=== PATIENT | female | born 1980 ===

== ENCOUNTER 2017-12-13 17:43 | Emergency (ER) | payer OTHER ==
[2017-12-13] MEDS ORDERED: Sodium Chloride 0.9% 1,000 ML IV ONE (20:13)
[2017-12-13] MEDS ORDERED: Apap-Butalbital-Caffeine 325-50-40mg Tab PO STA (20:14)
[2017-12-13 20:29] LABS: BASO # 0.1 K/uL (0.0-0.2); BASO % 1.1 % (0.0-2.0); EOS # 0.1 K/uL (0.0-0.7); EOS % 1.1 % (0.0-4.0); HEMOGLOBIN 12.8 g/dL (11.0-16.0); LYMPH # 2.6 K/uL (1.0-4.3); LYMPH % 25.7 % (20.0-40.0); MEAN CELL VOLUME 82.5 fL (81.0-99.0); MEAN CORPUSCULAR HGB CONC 33.9 g/dL (33.0-37.0); MEAN PLATELET VOLUME 6.8 fL (7.2-11.7); MONO # 0.8 K/uL (0.0-0.8); MONO % 7.4 % (0.0-10.0); NEUT # 6.6 K/uL (1.8-7.0); NEUT % 64.7 % (50.0-75.0); RBC 4.56 Mil/uL (3.80-5.20); WHITE BLOOD COUNT 10.2 K/uL (4.8-10.8)
[2017-12-13] MEDS ORDERED: Apap-Butalbital-Caffeine 325-50-40mg Tab ONE (20:30)
[2017-12-13 20:35] LABS: HCG,QUALITATIVE URINE NEGATIVE (NEGATIVE)
[2017-12-13 20:36] LABS: SQUAMOUS EPITHIAL 5 /hpf (0-5); URINE BACTERIA OCC (<OCC); URINE BILIRUBIN NEGATIVE (NEGATIVE); URINE BLOOD NEGATIVE (NEGATIVE); URINE CLARITY Clear (Clear); URINE COLOR Colorless (YELLOW); URINE GLUCOSE (UA) NORMAL (Normal); URINE LEUKOCYTE ESTERASE NEG Leu/uL (Negative); URINE NITRATE NEGATIVE (NEGATIVE); URINE PROTEIN NEGATIVE (NEGATIVE); URINE UROBILINOGEN NORMAL mg/dL (0.2-1.0)
[2017-12-13 20:41] LABS: CALCIUM 9.1 mg/dl (8.6-10.4); GFR AFRICAN-AMERICAN > 60; GFR NON-AFRICAN AMERICAN > 60
[2017-12-13 21:08] LABS: ALB/GLOB RATIO 1.1 (1.0-2.1); ALBUMIN 4.1 g/dL (3.5-5.0); ALT/SGPT 28 U/L (9-52); AST/SGOT 38 U/L (14-36); BLOOD UREA NITROGEN 8 mg/dL (7-17); MAGNESIUM 1.9 mg/dL (1.6-2.3)
--- NOTE | 2017-12-13 21:26 | CT ---
EXAM: CT Head Without Intravenous Contrast CLINICAL HISTORY: 37 years old, female; Signs and symptoms; Dizziness; Additional info: Headache, dizziness, h/o seizure disorder TECHNIQUE: Axial computed tomography images of the head/brain without intravenous contrast. All CT scans at this facility use one or more dose reduction techniques, viz.: automated exposure control; ma/kV adjustment per patient size (including targeted exams where dose is matched to indication; i.e. head); or iterative reconstruction technique. COMPARISON: No relevant prior studies available. FINDINGS: Brain: No intracranial hemorrhage. No mass. No definite edema. Ventricles: No hydrocephalus. Bones/joints: No acute fracture. Soft tissues: Unremarkable. Sinuses: Tiny LEFT sphenoid retention cyst. Mastoid air cells: No mastoid effusion. Orbits: Unremarkable as visualized. IMPRESSION: 1. No definite acute intracranial abnormality. 2. Incidental/non-acute findings are described above.
--- NOTE | 2017-12-13 22:50 | C.PDOC ---
Time Seen by Provider: 12/13/17 20:01 Chief Complaint (Nursing): Headache History Per: Patient Onset/Duration Of Symptoms: Days (4), Waxing/Waning, Gradual Current Symptoms Are (Timing): Still Present Severity: Moderate Quality: Pressure Associated Symptoms: Other (Lightheadedness). denies: Photophobia, Blurred Vision, Vomiting, Extremity Weakness Additional History Per: Prior Records Past Medical History Reviewed: Historical Data, Nursing Documentation, Vital Signs Vital Signs: Last Vital Signs Temp 97.8 F 12/13/17 17:55 Pulse 60 12/13/17 20:32 Resp 16 12/13/17 20:32 BP 118/78 12/13/17 20:32 Pulse Ox 100 12/13/17 22:50 - Medical History PMH: Anxiety, Depression, HTN, Seizures Surgical History: Appendectomy, Cholecystectomy - [facility] Procedures INJECT/INFUSE NEC (08/30/14) Family History: States: Unknown Family Hx - Social History Hx Tobacco Use: No Hx Alcohol Use: Yes Hx Substance Use: No - Immunization History Hx Tetanus Toxoid Vaccination: No Hx Influenza Vaccination: No Hx Pneumococcal Vaccination: No Review Of Systems Except As Marked, All Systems Reviewed And Found Negative. Constitutional: Positive for: Malaise. Negative for: Fever Eyes: Negative for: Pain, Vision Change Cardiovascular: Negative for: Chest Pain Respiratory: Negative for: Cough, Shortness of Breath Gastrointestinal: Negative for: Vomiting, Abdominal Pain, Diarrhea Musculoskeletal: Negative for: Neck Pain, Back Pain Skin: Negative for: Rash Neurological: Positive for: Headache. Negative for: Weakness, Numbness, Incoordination, Change in Speech, Confusion, Seizures, Altered Mental Status Psych: Positive for: Anxiety. Negative for: Suicidal ideation Physical Exam - Physical Exam Appears: Non-toxic, No Acute Distress Skin: Normal Color, Warm, Dry, No Rash Head: Atraumatic, Normacephalic Eye(s): bilateral: Normal Inspection, PERRL, EOMI Oral Mucosa: Moist Neck: Normal ROM, Supple Cardiovascular: Rhythm Regular Respiratory: Normal Breath Sounds, No Accessory Muscle Use Gastrointestinal/Abdominal: Soft, No Tenderness Back: No CVA Tenderness Extremity: Normal ROM Neurological/Psych: Oriented x3, Normal Speech, Normal Cognition, No Cerebellar Signs, Normal Motor, Normal Sensation ED Course And Treatment - Laboratory Results Result Diagrams: 12/13/17 20:26 12/13/17 20:26 Lab Interpretation: No Acute Changes Urine POC: Negative O2 Sat by Pulse Oximetry: 100 Pulse Ox Interpretation: Normal - CT Scan/US CT head Other Rad Studies (CT/US): Read By Radiologist, Radiology Report Reviewed CT/US Interpretation: IMPRESSION: 1. No definite acute intracranial abnormality. 2. Incidental/non-acute findings are described above. Progress - Interventions Interventions:: Observation, Intravenous fluid - Medications Administered Oral: Other (Fioricet) Intravenous: NSAID - Data Reviewed Data Reviewed: Lab, Diagnostic imaging, Old records - Patient Status Patient status: Mostly improved - Continuity of Care Discussed patient case with:: Patient, ED Nurse - Patient Plan Patient Plan: Discharge, F/U with PCP, Continue present meds Disposition Counseled Patient/Family Regarding: Studies Performed, Diagnosis, Need For Followup, Rx Given - Disposition Referrals: Toño Bonilla MD [Staff Provider] - Disposition: HOME/ ROUTINE Disposition Time: 22:54 Condition: IMPROVED Additional Instructions: Follow up with your Neurologist for further evaluation and treatment. Return to the ER if you develop fever, stiff neck, vomiting, severe headache, worsening of symptoms or if you have any other concerns. Prescriptions: Acetaminophen/Butalbital/Caf [Fioricet] 1 tab PO Q4 PRN #30 tab PRN Reason: Headache Instructions: Headache, Adult (DC) Forms: [facility] ([place]) - Clinical Impression Clinical Impression: Headache
[2017-12-13 23:14] VITALS: BP 111/73; PULSE 61; RESP 20; TEMP 97.4; O2SAT 98
== END 2017-12-13 23:13 | disposition home or self-care (01) ==
LOC: C.ER 17:43
DX: R51 Headache (principal); I10 Essential (primary) hypertension
CPT/HCPCS: 70450; 80053; 81001; 83735; 84703; 85025; 96361; 96374; 99285; J1885; J7040

== ENCOUNTER 2018-03-29 13:13 | Emergency (ER) | payer OTHER ==
[2018-03-29 13:20] VITALS: BMI 37.0
[2018-03-29 13:22] VITALS: RESP 18
[2018-03-29] MEDS ORDERED: Sodium Chloride 0.9% 1,000 ML IV ONE (14:31)
[2018-03-29 15:06] LABS: SQUAMOUS EPITHIAL 10 /hpf (0-5); URINE BACTERIA RARE (<OCC); URINE BILIRUBIN NEGATIVE (NEGATIVE); URINE BLOOD 2+ (NEGATIVE); URINE CLARITY Hazy (Clear); URINE COLOR Straw (YELLOW); URINE GLUCOSE (UA) NORMAL (Normal); URINE LEUKOCYTE ESTERASE 1+ Leu/uL (Negative); URINE PROTEIN NEGATIVE (NEGATIVE); URINE UROBILINOGEN NORMAL mg/dL (0.2-1.0)
[2018-03-29 15:13] LABS: BASO # 0.1 K/uL (0.0-0.2); BASO % 1.4 % (0.0-2.0); EOS # 0.1 K/uL (0.0-0.7); EOS % 1.4 % (0.0-4.0); LYMPH # 1.7 K/uL (1.0-4.3); LYMPH % 17.2 % (20.0-40.0); MEAN CELL VOLUME 83.7 fL (81.0-99.0); MEAN CORPUSCULAR HEMOGLOBIN 28.2 pg (27.0-31.0); MEAN CORPUSCULAR HGB CONC 33.7 g/dL (33.0-37.0); MEAN PLATELET VOLUME 6.9 fL (7.2-11.7); MONO # 0.7 K/uL (0.0-0.8); NEUT # 7.1 K/uL (1.8-7.0); RBC 4.62 Mil/uL (3.80-5.20); RED CELL DISTRIBUTION WIDTH 14.3 % (11.5-14.5); WHITE BLOOD COUNT 9.7 K/uL (4.8-10.8)
[2018-03-29 15:31] LABS: ALB/GLOB RATIO 1.2 (1.0-2.1); ALBUMIN 4.4 g/dL (3.5-5.0); ALT/SGPT 24 U/L (9-52); AST/SGOT 26 U/L (14-36); BLOOD UREA NITROGEN 10 mg/dL (7-17); CALCIUM 9.1 mg/dl (8.6-10.4); GFR AFRICAN-AMERICAN > 60; GFR NON-AFRICAN AMERICAN > 60; LIPASE 90 U/L (23-300)
[2018-03-29] MEDS ORDERED: Iodixanol 320 MG/ML 100 ML BOTTLE IV ONE (15:51)
--- NOTE | 2018-03-29 16:14 | C.PDOC ---
History Of Present Illness 37yo female, presents to ER for evaluation of abdominal pain for the past 3 day with associated sore throat, diarrhea and nausea. Patient states the pain is localized to her right upper quadrant. She denies any fever, chills, nausea or vomiting. She has no other medical complaints. Time Seen by Provider: 03/29/18 14:01 Chief Complaint (Nursing): Abdominal Pain History Per: Patient History/Exam Limitations: no limitations Onset/Duration Of Symptoms: Days (3) Current Symptoms Are (Timing): Still Present Location Of Pain/Discomfort: RUQ Radiation Of Pain To:: None Quality Of Discomfort: "Pain" Associated Symptoms: Diarrhea. denies: Fever, Chills, Nausea, Vomiting, Back Pain, Chest Pain, Constipation, Urinary Symptoms Additional History Per: Patient Past Medical History Reviewed: Historical Data, Nursing Documentation, Vital Signs Vital Signs: Last Vital Signs Temp 99.3 F 03/29/18 13:20 Pulse 84 03/29/18 13:20 Resp 18 03/29/18 13:20 BP 118/75 03/29/18 13:20 Pulse Ox 98 03/29/18 17:08 - Medical History PMH: Anxiety, Depression, Seizures Denies: HTN (denies) Surgical History: Appendectomy, Cholecystectomy - [facility] Procedures INJECT/INFUSE NEC (08/30/14) Family History: States: No Known Family Hx, Unknown Family Hx - Social History Hx Tobacco Use: No Hx Alcohol Use: Yes Hx Substance Use: No - Immunization History Hx Tetanus Toxoid Vaccination: No Hx Influenza Vaccination: No Hx Pneumococcal Vaccination: No Review Of Systems Except As Marked, All Systems Reviewed And Found Negative. Constitutional: Negative for: Fever, Chills ENT: Positive for: Throat Pain Cardiovascular: Negative for: Chest Pain Respiratory: Negative for: Shortness of Breath Gastrointestinal: Positive for: Abdominal Pain, Diarrhea. Negative for: Nausea , Vomiting Physical Exam - Physical Exam Appears: Non-toxic, No Acute Distress Skin: Normal Color, Warm, Dry Head: Atraumatic, Normacephalic Eye(s): bilateral: Normal Inspection Throat: Erythema, Exudate, No Drooling, No Mass Neck: Normal ROM, Supple Chest: Symmetrical Cardiovascular: Rhythm Regular Respiratory: Normal Breath Sounds Gastrointestinal/Abdominal: Normal Exam, Bowel Sounds, Soft, No Tenderness, No Mass, No Guarding, No Rebound Extremity: Normal ROM, No Pedal Edema Neurological/Psych: Oriented x3 ED Course And Treatment - Laboratory Results Result Diagrams: 03/29/18 15:05 03/29/18 15:05 O2 Sat by Pulse Oximetry: 98 (RA) Pulse Ox Interpretation: Normal - CT Scan/US CT Abomen/Pelvis Other Rad Studies (CT/US): Radiology Report Reviewed CT/US Interpretation: FINDINGS: LOWER THORAX: Of small elliptical shaped calcified granuloma left lower lobe. No evidence of effusion or basilar pneumothorax. Tiny hiatal hernia. LIVER: The liver exhibits normal size measuring approximately 17.5 cm. Mild diffuse fatty hepatic infiltration. Suspect small cyst left lobe liver bordering the fissure measuring approximately 12.4 x 6.7 mm. The portal and splenic veins are opacified. . Minimal post cholecystectomy central intrahepatic biliary ductal prominence. GALLBLADDER AND BILE DUCTS: Cholecystectomy. PANCREAS: Unremarkable. No gross lesion or ductal dilatation. SPLEEN: Unremarkable. ADRENALS: No adrenal lesions. KIDNEYS AND URETERS: Unremarkable. No hydronephrosis. No solid mass. VASCULATURE: Unremarkable. No aortic aneurysm. BOWEL: Evaluation of the bowel is limited due to the lack of oral contrast material. The stomach is incompletely distended which presumably accounts for thick- walled appearance however gastritis or other intrinsic wall lesion not excluded. Visualized loops of small bowel exhibit normal contour and caliber. No evidence acute mechanical small bowel obstruction. Stool and air seen throughout the large bowel. No definitive evidence of abnormal mural wall thickening. APPENDIX: Normal-appearing appendix. PERITONEUM: Unremarkable. No free fluid. No free air. The small to medium-sized the umbilical hernia containing mesenteric fat and nonobstructed loop of small bowel. [place]. LYMPH NODES: Unremarkable. No enlarged lymph nodes. BLADDER: Urinary bladder is appears incompletely distended which presumably accounts for slight thick- walled appearance. Correlation with urinalysis. REPRODUCTIVE: Unremarkable as visualized. BONES: Minor multilevel degenerative spondylosis of the thoracic and lumbar spine. No compression fractures no retropulsed fragments. OTHER FINDINGS: None. IMPRESSION: No acute intra abdominal pathology. Mild fatty hepatic infiltration with minimal of post cholecystectomy prominence of the central intrahepatic biliary ducts. Urinary bladder incompletely distended which presumably accounts slight thick-walled appearance. Correlation with urinalysis recommended. Medical Decision Making Medical Decision Making: Impression: Abdominal pain, sore throat Plan: -- CT Abdomen and Pelvis w IV Contrast -- Pepcid 20mg IVP -- Zofran 4mg IVP -- Toradol 30mg IVP -- IV Fluids -- Labs -- Urinalysis Progress: 1704 Urinalysis reviewed and shows no signs of UTI Patient informed of CT findings. Stable for discharge home, instructed to take medications as prescribed. Instructed to follow up with PMD in 2-3 days. Disposition Counseled Patient/Family Regarding: Studies Performed, Diagnosis, Need For Followup, Rx Given - Disposition Referrals: Alden Tejada MD [Medical Doctor] - Disposition: HOME/ ROUTINE Disposition Time: 17:04 Condition: STABLE Additional Instructions: follow up with your doctor within 2 days call to make an appointment take medications as prescribed return to ER if symptoms worsens or progress Prescriptions: Amoxicillin/Clavulanate [Augmentin 875 MG-125 MG] 1 tab PO BID #20 tab Famotidine [Pepcid] 20 mg PO BID #20 tab Ondansetron ODT [Zofran ODT] 4 mg PO TID PRN #12 odt PRN Reason: Nausea/Vomiting traMADol [Ultram] 50 mg PO TID PRN #12 tab PRN Reason: Pain, Moderate (4-7) Instructions: Sore Throat, Adult (DC), Acute Abdomen (Belly Pain), Adult (DC) Forms: [facility] (Thai), General Discharge Instructions, Work Excuse - Clinical Impression Clinical Impression: Abdominal pain, Throat pain in adult - Scribe Statement The provider has reviewed the documentation as recorded by the Scribe (Millicent Stacy) Provider Attestation: All medical record entries made by the Rosaliaibe were at my direction and personally dictated by me. I have reviewed the chart and agree that the record accurately reflects my personal performance of the history, physical exam, medical decision making, and the department course for this patient. I have also personally directed, reviewed, and agree with the discharge instructions and disposition.
--- NOTE | 2018-03-29 16:31 | CT ---
PROCEDURE: CT abdomen pelvis dated 03/29/2018. Move save move HISTORY: Right-sided pain COMPARISON: Comparison made with CT scan abdomen pelvis 05/02/2013. TECHNIQUE: Contrast dose: 100 cc Visipaque 320 Radiation dose: Total exam DLP = 1101.84 mGy-cm. This CT exam was performed using one or more of the following dose reduction techniques: Automated exposure control, adjustment of the mA and/or kV according to patient size, and/or use of iterative reconstruction technique. FINDINGS: LOWER THORAX: Of small elliptical shaped calcified granuloma left lower lobe. No evidence of effusion or basilar pneumothorax. Tiny hiatal hernia. LIVER: The liver exhibits normal size measuring approximately 17.5 cm. Mild diffuse fatty hepatic infiltration. Suspect small cyst left lobe liver bordering the fissure measuring approximately 12.4 x 6.7 mm. The portal and splenic veins are opacified. . Minimal post cholecystectomy central intrahepatic biliary ductal prominence GALLBLADDER AND BILE DUCTS: Cholecystectomy. PANCREAS: Unremarkable. No gross lesion or ductal dilatation. SPLEEN: Unremarkable. ADRENALS: No adrenal lesions. KIDNEYS AND URETERS: Unremarkable. No hydronephrosis. No solid mass. VASCULATURE: Unremarkable. No aortic aneurysm. BOWEL: Evaluation of the bowel is limited due to the lack of oral contrast material. The stomach is incompletely distended which presumably accounts for thick-walled appearance however gastritis or other intrinsic wall lesion not excluded. Visualized loops of small bowel exhibit normal contour and caliber. No evidence acute mechanical small bowel obstruction. Stool and air seen throughout the large bowel. No definitive evidence of abnormal mural wall thickening. APPENDIX: Normal-appearing appendix PERITONEUM: Unremarkable. No free fluid. No free air. The small to medium-sized the umbilical hernia containing mesenteric fat and nonobstructed loop of small bowel. [place] LYMPH NODES: Unremarkable. No enlarged lymph nodes. BLADDER: Urinary bladder is appears incompletely distended which presumably accounts for slight thick-walled appearance. Correlation with urinalysis. REPRODUCTIVE: Unremarkable as visualized. BONES: Minor multilevel degenerative spondylosis of the thoracic and lumbar spine. No compression fractures no retropulsed fragments. OTHER FINDINGS: None. IMPRESSION: No acute intra abdominal pathology. Mild fatty hepatic infiltration with minimal of post cholecystectomy prominence of the central intrahepatic biliary ducts. Urinary bladder incompletely distended which presumably accounts slight thick-walled appearance. Correlation with urinalysis recommended.
[2018-03-29 17:29] VITALS: BP 105/61; PULSE 55; TEMP 98.5; O2SAT 96
== END 2018-03-29 17:55 | disposition home or self-care (01) ==
LOC: C.ER 13:13
DX: J02.9 Acute pharyngitis, unspecified (principal); R10.9 Unspecified abdominal pain
CPT/HCPCS: 74177; 80053; 81001; 83690; 85025; 96361; 96374; 96375; 99285; J1885; J2405; J7030; Q9967